=== PATIENT | female | born 1995 | race American Indian/Alaskan Native ===

== ENCOUNTER 2016-12-17 16:08 | Emergency (ER) | payer MEDICAID ==
[2016-12-17 16:09] VITALS: BMI 20.5
[2016-12-17 16:42] VITALS: TEMP 99.8; O2SAT 100
--- NOTE | 2016-12-17 17:50 | ED PDOC ---
Arrival/HPI - General Chief Complaint: Cough, Cold, Congestion Time Seen by Provider: 12/17/16 16:49 Historian: Patient - History of Present Illness Narrative History of Present Illness (Text): 12/17/16 17:47 21yo female who present with complaint of sore throat, "ear popping", nasal congestion since this morning. She denies fever, chills, headache, body ache, cough, sick contact, any other complaint. Past Medical History - Provider Review Nursing Documentation Reviewed: Yes - Infectious Disease Hx of Infectious Diseases: None - Psychiatric Hx Depression: No Hx Emotional Abuse: No Hx Physical Abuse: No Hx Substance Use: No - Surgical History Other/Comment: cleft palette sx - Anesthesia Hx Anesthesia: Yes Hx Anesthesia Reactions: No Hx Malignant Hyperthermia: No - Suicidal Assessment Feels Threatened In Home Enviroment: No Family/Social History - Physician Review Nursing Documentation Reviewed: Yes Family/Social History: Unknown Family HX Smoking Status: Never Smoked Hx Alcohol Use: Yes (SOCIALLY) Hx Substance Use: No Hx Substance Use Treatment: No Allergies/Home Meds Allergies/Adverse Reactions: Allergies No Known Allergies Allergy (Verified 12/17/16 16:40) Review of Systems - Physician Review All systems were reviewed & negative as marked: Yes - Review of Systems Constitutional: Normal Eyes: Normal ENT: Sore Throat, Rhinorrhea Respiratory: Normal Cardiovascular: Normal Gastrointestinal: Normal Genitourinary Female: Normal Musculoskeletal: Normal Skin: Normal Neurological: Normal Endocrine: Normal Hemo/Lymphatic: Normal Psychiatric: Normal Physical Exam Vital Signs Reviewed: Yes Vital Signs Temp Pulse Resp BP Pulse Ox 12/17/16 18:10 91 H 16 137/64 100 12/17/16 16:40 99.8 F H 104 H 17 142/66 100 Temperature: Afebrile Blood Pressure: Normal Pulse: Regular Respiratory Rate: Normal Appearance: Positive for: Well-Appearing, Non-Toxic, Comfortable Pain Distress: None Mental Status: Positive for: Alert and Oriented X 3 - Systems Exam Head: Present: Atraumatic, Normocephalic Pupils: Present: PERRL Extroacular Muscles: Present: EOMI Conjunctiva: Present: Normal Ears: Present: Other (B/L TM congestion noted) Mouth: Present: Moist Mucous Membranes Pharnyx: Present: Normal. No: ERYTHEMA, EXUDATE, TONSILS ENLARGED, Peritonsilar Swelling, Uvular Deviation, Muffled/Hoarse Voice, Strider Nose (Internal): Present: Engorged (B/L turbinates) Neck: Present: Normal Range of Motion Respiratory/Chest: Present: Clear to Auscultation, Good Air Exchange. No: Respiratory Distress, Accessory Muscle Use Cardiovascular: Present: Regular Rate and Rhythm, Normal S1, S2. No: Murmurs Abdomen: Present: Normal Bowel Sounds. No: Tenderness, Distention, Peritoneal Signs Back: Present: Normal Inspection Upper Extremity: Present: Normal Inspection. No: Cyanosis, Edema Lower Extremity: Present: Normal Inspection. No: Edema Neurological: Present: GCS=15, CN II-XII Intact, Speech Normal Skin: Present: Warm, Dry, Normal Color. No: Rashes Psychiatric: Present: Alert, Oriented x 3, Normal Insight, Normal Concentration Medical Decision Making ED Course and Treatment: 12/18/16 01:06 Rapid strep was negative. PE was benign. Result was DW the pt.. Tx with claritin and DC home with same medication for symptomatic tx. Referred to her PMD. TRT ED for any new or worsening symptoms. - Lab Interpretations Lab Results: Lab Results 12/17/16 16:50: Grp A Beta Strep Ag Negative - Medication Orders Current Medication Orders: Discontinued Medications Acetaminophen (Tylenol 325mg Tab) 650 mg PO STAT STA Stop: 12/17/16 17:39 Last Admin: 12/17/16 17:46 Dose: 650 MG Loratadine (Claritin) 10 mg PO ONCE ONE Stop: 12/17/16 17:38 Last Admin: 12/17/16 17:47 Dose: 10 MG Disposition/Present on Arrival - Present on Arrival Any Indicators Present on Arrival: No History of DVT/PE: No History of Uncontrolled Diabetes: No Urinary Catheter: No History of Decub. Ulcer: No History Surgical Site Infection Following: None - Disposition Have Diagnosis and Disposition been Completed?: Yes Diagnosis: Post-nasal drip, Cold, Nasal discharge Disposition: HOME/ ROUTINE Disposition Time: 17:50 Patient Plan: Discharge Condition: STABLE Discharge Instructions (ExitCare): Cold Symptoms (ED) Additional Instructions: Follow up with your doctor Drink plenty of fluid and rest Return to ED for any new or worsening symptoms Prescriptions: Loratadine/Pseudoephedrine [Claritin-D 24 Hour Tablet] 1 each PO DAILY #30 tab.er.24h Referrals: Femi Reynolds MD [Primary Care Provider] - Follow up with primary
[2016-12-17 18:33] VITALS: BP 137/64; PULSE 91; RESP 16
== END 2016-12-17 18:10 | disposition home or self-care (01) ==
LOC: ED 16:08
DX: R09.82 Postnasal drip (principal)